=== PATIENT | female | born 1945 | race Caucasian/White ===

== ENCOUNTER 2018-01-19 23:20 | Inpatient (IN) | payer MEDICARE ==
[~2018-01-19] VITALS: Ht 154.9 cm; Wt 97.3 kg
[2018-01-20] MEDS ORDERED: SODIUM CHLORIDE 0.9% 1000ML 1,000 ML IV STA (00:24)
[2018-01-20] MEDS ORDERED: ONDANSETRON HCL INJ 2 MG/ML VIAL IV STA (00:24)
[2018-01-20] MEDS ORDERED: PANTOPRAZOLE 40 MG 10ML VIAL IV STA (00:24)
[2018-01-20] MEDS ORDERED: HYDROMORPHONE 1MG/1ML INJ IV STA (00:24)
[2018-01-20 00:56] LABS: BASOPHILS % 0.3 % (0.0-1.0); EOSINOPHILS # (AUTO) 0.1 (0.0-0.4); EOSINOPHILS % 0.8 % (0.0-6.0); HEMATOCRIT 47.9 % (34.2-44.1); HEMOGLOBIN 15.5 g/dL (12.0-16.0); LYMPHOCYTES # (AUTO) 1.9 (1.0-3.2); LYMPHOCYTES % 11.7 % (18.0-39.1); MEAN CORPUSCULAR HGB CONC 32.4 g/dL (31-35); MEAN CORPUSCULAR VOLUME 86.5 fL (81-99); MONOCYTES # (AUTO) 1.4 (0.2-0.8); MONOCYTES % 8.9 % (4.4-11.3); NEUTROPHILS # (AUTO) 12.4 (2.1-6.9); NEUTROPHILS % 77.9 % (38.7-80.0); PLATELET COUNT 300 x10e3/uL (140-360); RED BLOOD COUNT 5.54 x10e6/uL (3.6-5.1); RED CELL DISTRIBUTION WIDTH 13.1 % (11.7-14.4)
[2018-01-20 01:00] LABS: INR 0.87; PROTHROMBIN TIME 12.7 seconds (11.9-14.5)
[2018-01-20 01:09] LABS: ALANINE AMINOTRANSFERASE 35 IU/L (0-55); ALBUMIN 3.8 g/dL (3.5-5.0); ALKALINE PHOSPHATASE 130 IU/L (40-150); AMYLASE 752 U/L (25-125); ANION GAP 18.9 mmol/L (8-16); BLOOD UREA NITROGEN 8 mg/dL (7-26); BUN/CREATININE RATIO 11 (6-25); CALCIUM 9.8 mg/dL (8.4-10.2); CARBON DIOXIDE 20 mmol/L (22-29); CHLORIDE 104 mmol/L (98-107); CREATINE KINASE 46 IU/L (29-168); CREATININE, SERUM 0.76 mg/dL (0.57-1.11); EST GLOMERULAR FILTRATION RATE > 60 ML/MIN (60-); GLUCOSE 177 mg/dL (74-118); MAGNESIUM 2.1 MG/DL (1.3-2.1); POTASSIUM 3.9 mmol/L (3.5-5.1); SODIUM 139 mmol/L (136-145)
[2018-01-20 01:17] LABS: CLARITY,URINE HAZY (CLEAR); COLOR,URINE YELLOW (YELLOW)
[2018-01-20 01:18] LABS: BILIRUBIN,URINE NEGATIVE (NEGATIVE); KETONES,URINE TRACE (NEGATIVE); LEUKOCYTE ESTERASE ,URINE NEGATIVE (NEGATIVE); NITRITE,URINE NEGATIVE (NEGATIVE); PROTEIN,URINE DIPSTICK 2+ (NEGATIVE); URINE UROBILINOGEN 0.2 mg/dL (0.2 - 1)
[2018-01-20 01:19] LABS: BACTERIA,URINE MODERATE /HPF; EPITHELIAL CELLS,URINE FEW /LPF; MUCUS,URINE FEW (RARE)
[2018-01-20 01:21] LABS: RBC,URINE 0-5 /HPF (0-5)
--- NOTE | 2018-01-20 01:26 | Diagnostic Imaging Report ---
EXAM: CHEST SINGLE (PORTABLE), AP 1 view INDICATION: History of pancreatitis, abdominal pain COMPARISON: None FINDINGS: LINES/TUBES: None LUNGS: No consolidations or edema. PLEURA: No effusions or pneumothorax. HEART AND MEDIASTINUM: Normal size and contour. BONES AND SOFT TISSUES: No acute findings. IMPRESSION: No acute thoracic abnormality. Signed by: Dr. Lesely Cordova M.D. on 01/20/2018 1:23 AM
[2018-01-20] MEDS ORDERED: HYDROMORPHONE 2MG/ML 2 MG/ML ML ONE (01:32)
[2018-01-20] MEDS ORDERED: IOPAMIDOL 370 MG/ML 200 ML INFUS..BTL INJ ONE (01:33)
[2018-01-20] MEDS ORDERED: SODIUM CHLORIDE 0.9% 50ML 50 ML ONE (01:33)
[2018-01-20 01:49] LABS: LIPASE 1897 U/L (8-78)
[2018-01-20 02:11] LABS: CHOL/HDL RATIO 3.7 (3.0-3.6)
--- NOTE | 2018-01-20 02:20 | Diagnostic Imaging Report ---
EXAM: CT ABDOMEN AND PELVIS with IV CONTRAST DATE: 01/20/2018 12:24 AM Time stamp on Exam: 0152 hours INDICATION: History of pancreatitis, abdominal pain COMPARISON: None TECHNIQUE: The abdomen and pelvis were scanned using a multidetector helical scanner. Coronal and sagittal reformations were obtained. Dose modulation, iterative reconstruction, and/or weight based adjustment of the mA/kV was utilized to reduce the radiation dose to as low as reasonably achievable. Routine protocol performed. IV Contrast: 100 cc Isovue-370 Oral Contrast: Water FINDINGS: LOWER THORAX: No consolidations LIVER: No masses BILIARY: Cholecystectomy. No ductal dilation. SPLEEN: No masses PANCREAS: Body and tail of the pancreas are edematous with mild pancreatic stranding. Mild ductal dilation. ADRENALS: No nodules KIDNEYS: Symmetric perfusion. Bilateral mild to moderate hydronephrosis without hydroureter versus multiple parapelvic cysts. Nonspecific bilateral perinephric fat stranding. GI TRACT: No distention, wall thickening or evidence of obstruction. VESSELS: No acute findings PERITONEUM/RETROPERITONEUM: No free air or fluid LYMPH NODES: No lymphadenopathy REPRODUCTIVE ORGANS: Uterus and ovaries not visualized. BLADDER: Unremarkable SOFT TISSUES: Unremarkable BONES: No suspicious bone lesions. IMPRESSION: 1. Appearance of the pancreas would be consistent with acute pancreatitis. No pseudocyst. 2. Appearance of the bilateral kidneys is indeterminate for multiple parapelvic cysts or hydronephrosis secondary to UPJ obstruction. A nonemergent ultrasound would help distinguish. Signed by: Dr. Lesley Cordova M.D. on 01/20/2018 2:17 AM
[2018-01-20] MEDS: SODIUM CHLORIDE 0.9% 1000ML 1,000 ML IV SCH ×3 (03:40→17:03)
[2018-01-20] MEDS: CEFTRIAXONE SOD 1 GM VIAL IV SCH ×2 (03:40→14:54)
[2018-01-20] MEDS ORDERED: ACETAMINOPHEN 325 MG TAB ONE (04:11)
[2018-01-20] MEDS ORDERED: ACETAMINOPHEN 325 MG TAB PO ONE (04:15)
[2018-01-20] MEDS: HYDROMORPHONE 2MG/ML 2 MG/ML ML IV PRN ×2 (07:31→15:29)
[2018-01-20] MEDS: PANTOPRAZOLE 40 MG 10ML VIAL IV SCH (09:21)
--- NOTE | 2018-01-20 11:32 | History and Physical ---
PRIMARY CARE PHYSICIAN: Dr. Chauncey Saini. CHIEF COMPLAINT: Abdominal pain. HISTORY OF PRESENT ILLNESS: A 72-year-old woman with a history of cigarette use and a history of pancreatitis on 2 occasions, now developing epigastric pain with nausea and vomiting. She denies any diarrhea or fever. She is admitted for management of acute pancreatitis. PAST MEDICAL HISTORY: Endometriosis, status post hysterectomy; cigarette use; pancreatitis x2. PAST SURGICAL HISTORY: Cholecystectomy, hysterectomy, thyroid, left knee, cataract x2, endometriosis related procedures. ALLERGIES: PER ELECTRONIC MEDICAL RECORD. FAMILY AND SOCIAL HISTORY: Patient is . She has no children. No alcohol or illicits. She smokes a third of a pack of cigarettes per day. MEDICATIONS: Per electronic medical record. REVIEW OF SYSTEMS: Denies any dizziness, chest pain, shortness of breath, fever, chills, sweats, headache, or vision changes. PHYSICAL EXAMINATION VITAL SIGNS: Reviewed. GENERAL: A tired-appearing woman, resting in bed. HEENT: Anicteric. Pupils are responsive to light. No oral lesions. CARDIOVASCULAR: Normal S1, S2. LUNGS: Moderate breath sounds. ABDOMEN: Soft, nondistended. She has exquisite tenderness in the epigastrium. EXTREMITIES: No edema or calf tenderness. NEUROLOGICAL: Alert and oriented x3, moves all extremities. SKIN: Dry. PSYCHIATRIC: Normal affect. LABS: Reviewed. MEDICATIONS: Reviewed. ASSESSMENT: This is a 72-year-old woman with; 1. Acute pancreatitis. 2. Urinary tract infection. 3. Metabolic acidosis. 4. Dehydration. 5. Obesity. 6. Hyperglycemia. 7. Cigarette smoker. PLAN 1. IV fluids. 2. NPO status. 3. Empiric antibiotics. 4. She had a cholecystectomy in the past. 5. CT scan of the abdomen shows findings consistent with acute pancreatitis, but no pseudocyst. 6. Continue to follow closely, rehydrate patient, and reassess labs in the morning. Job#: [id number] CECI
[2018-01-20 14:28] VITALS: BP 139/96
[2018-01-20] MEDS: ONDANSETRON HCL INJ 2 MG/ML VIAL IV PRN (15:29)
[2018-01-20 17:23] VITALS: BP 139/82
[2018-01-20 17:24] VITALS: BP 139/82
[2018-01-20 17:29] VITALS: BP 139/82
[2018-01-20] MEDS ORDERED: ACETAMINOPHEN 1000 MG/100 ML IV PRN (18:00)
[2018-01-20] MEDS ORDERED: ACETAMINOPHEN 1000 MG/100 ML IV SCH (18:00)
[2018-01-20 20:00] VITALS: BP_SYST 139; BP_SYST 146; BP_DIAS 77; BP_DIAS 82
[2018-01-21] VITALS: BP 119/62
[2018-01-21] MEDS: HYDROMORPHONE 2MG/ML 2 MG/ML ML IV PRN (00:08)
[2018-01-21] MEDS: ONDANSETRON HCL INJ 2 MG/ML VIAL IV PRN (00:08)
[2018-01-21] MEDS: SODIUM CHLORIDE 0.9% 1000ML 1,000 ML IV SCH ×3 (01:40→22:28)
[2018-01-21] MEDS: CEFTRIAXONE SOD 1 GM VIAL IV SCH ×2 (01:42→14:58)
[2018-01-21 04:00] VITALS: BP 117/56
[2018-01-21 05:13] LABS: BASOPHILS # (AUTO) 0.1 (0.0-0.1); BASOPHILS % 0.4 % (0.0-1.0); EOSINOPHILS # (AUTO) 0.2 (0.0-0.4); EOSINOPHILS % 1.2 % (0.0-6.0); HEMOGLOBIN 13.2 g/dL (12.0-16.0); LYMPHOCYTES # (AUTO) 1.5 (1.0-3.2); LYMPHOCYTES % 10.7 % (18.0-39.1); MEAN CORPUSCULAR HEMOGLOBIN 28.4 pg (28-32); MEAN CORPUSCULAR HGB CONC 32.2 g/dL (31-35); MEAN CORPUSCULAR VOLUME 88.2 fL (81-99); MONOCYTES # (AUTO) 1.3 (0.2-0.8); MONOCYTES % 8.9 % (4.4-11.3); NEUTROPHILS # (AUTO) 11.1 (2.1-6.9); NEUTROPHILS % 78.2 % (38.7-80.0); PLATELET COUNT 233 x10e3/uL (140-360); RED BLOOD COUNT 4.65 x10e6/uL (3.6-5.1); RED CELL DISTRIBUTION WIDTH 13.4 % (11.7-14.4)
[2018-01-21 05:40] LABS: ALANINE AMINOTRANSFERASE 26 IU/L (0-55); ALBUMIN 3.1 g/dL (3.5-5.0); ALBUMIN/GLOBULIN RATIO 0.9 (0.8-2.0); ALKALINE PHOSPHATASE 109 IU/L (40-150); AMYLASE 144 U/L (25-125); ANION GAP 16.9 mmol/L (8-16); BLOOD UREA NITROGEN 6 mg/dL (7-26); BUN/CREATININE RATIO 9 (6-25); CALCIUM 9.5 mg/dL (8.4-10.2); CARBON DIOXIDE 23 mmol/L (22-29); CHLORIDE 104 mmol/L (98-107); EST GLOMERULAR FILTRATION RATE > 60 ML/MIN (60-); GLUCOSE 106 mg/dL (74-118); LIPASE 148 U/L (8-78); POTASSIUM 4.9 mmol/L (3.5-5.1); SODIUM 139 mmol/L (136-145)
[2018-01-21] MEDS: PANTOPRAZOLE 40 MG 10ML VIAL IV SCH (08:07)
[2018-01-21 08:15] VITALS: BP 122/67
[2018-01-21 11:59] VITALS: BP 125/59
--- OUTSIDE RECORDS SUMMARY | 2018-01-21 14:10 | XMS REPORT | Clinical Summary ---
Author Author [employer] [employer] [facility] [employer] Address Unknown Phone Unavailable Care Team Providers Care Lamp Shade Maker Name Role Phone Asked, No Pcp PCP Unavailable Allergies Active Allergy Reactions Severity Noted Date Comments Celecoxib Anaphylaxis High 09/26/2017 Sulfa (Sulfonamide Anaphylaxis High 09/26/2017 Antibiotics) Current Medications Prescription Sig. Disp. Refills Start End Date Status Date acetaminophen (TYLENOL) Take 650 mg by mouth Active 325 MG tablet every 6 (six) hours as needed for fever. ALPRAZolam (XANAX) 0.5 MG Take 0.25 mg by mouth Active tablet nightly as needed for anxiety (only taken 2 since April). traMADol (ULTRAM) 50 mg Take 1 tablet (50 mg 60 tablet 0 09/28/19 10/28/19 tablet total) by mouth every 6 18 18 (six) hours as needed for moderate pain for up to 30 days. Active Problems Problem Noted Date Chest pain 09/27/2017 Encounters Date Type Specialty Care Team Description 09/26/2017 Emergency General Internal Medicine Filipe Adan MD Chest pain, unspecified - Michelle Jarred type (Primary Dx); 09/27/2017 MD Phil Acute pancreatitis, unspecified complication status, unspecified pancreatitis type after 01/19/2017 Social History Tobacco Use Types Packs/Day Years Used Date Light Tobacco Smoker Cigarettes Smokeless Tobacco: Never Used Tobacco Cessation: Ready to Quit: No; Counseling Given: Yes Alcohol Use Drinks/Week oz/Week Comments No Sex Assigned at Date Recorded Not on file Last Filed Vital Signs Vital Sign Reading Time Taken Blood Pressure 141/66 09/27/2017 11:23 AM CDT Pulse 72 09/27/2017 11:23 AM CDT Temperature 36.8 C (98.3 F) 09/27/2017 11:23 AM CDT Respiratory Rate 18 09/27/2017 11:23 AM CDT Oxygen Saturation 94% 09/27/2017 11:23 AM CDT Inhaled Oxygen - - Concentration Weight 90.7 kg (200 lb) 09/26/2017 8:30 PM CDT Height 157.5 cm (5' 2") 09/26/2017 8:30 PM CDT Body Mass Index 36.58 09/26/2017 8:30 PM CDT Plan of Treatment Health Maintenance Due Date Last Done Comments BREAST CANCER SCREENING 01/22/1996 COLON CANCER SCREENING 01/22/1996 SHINGRIX VACCINE (#1) 01/22/1996 ZOSTER VACCINE 2006 INFLUENZA VACCINE 11/06/2017 PNEUMOCOCCAL-13 Completed 03/14/2016 PNEUMOCOCCAL Completed 04/16/2017 POLYSACCHARIDE VACCINE AGE 65 AND OVER Procedures Procedure Name Priority Date/Time Associated Diagnosis Comments TROPONIN Timed 09/27/2017 Results for this 12:18 PM CDT procedure are in the results section. TROPONIN Timed 09/27/2017 Results for this 8:44 AM CDT procedure are in the results section. ECG 12-LEAD Routine 09/27/2017 Results for this 4:41 AM CDT procedure are in the results section. TROPONIN Timed 09/27/2017 Results for this 4:24 AM CDT procedure are in the results section. CT ABDOMEN PELVIS WO STAT 09/27/2017 Results for this CONTRAST 1:07 AM CDT procedure are in the results section. TROPONIN Timed 09/27/2017 Results for this 12:38 AM CDT procedure are in the results section. LIPASE LEVEL STAT 09/26/2017 Results for this 9:38 PM CDT procedure are in the results section. HEPATIC FUNCTION PANEL STAT 09/26/2017 Results for this 9:38 PM CDT procedure are in the results section. B NATRIURETIC PEPTIDE STAT 09/26/2017 Results for this 9:38 PM CDT procedure are in the results section. ZZESTIMATED GFR STAT 09/26/2017 Results for this 9:38 PM CDT procedure are in the results section. TROPONIN STAT 09/26/2017 Results for this 9:38 PM CDT procedure are in the results section. HC COMPLETE BLD COUNT STAT 09/26/2017 Results for this W/AUTO DIFF 9:38 PM CDT procedure are in the results section. BASIC METABOLIC PANEL STAT 09/26/2017 Results for this 9:38 PM CDT procedure are in the results section. XR CHEST 1 VW PORTABLE STAT 09/26/2017 Results for this 9:34 PM CDT procedure are in the results section. ECG 12-LEAD STAT 09/26/2017 Results for this 8:23 PM CDT procedure are in the results section. ECG ED PRELIMINARY Routine 09/26/2017 Results for this INTERPRETATION 8:20 PM CDT procedure are in the results section. after 01/19/2017 Results * Troponin (09/27/2017 12:18 PM) Only the most recent of 5 results within the time period is included. Troponin <0.30 ng/mL [facility] DEPARTMENT OF Comment: PATHOLOGY AND 0.11 - 1.49 GENOMIC MEDICINE ng/mlMay indicate increased risk of acute coronary syndrome. >=1.5 ng/ml Consistent with acute myocardial infarction. The diagnostic value of a single normal or non-diagnostic result is questionable.Serial samples at 2-6 hour intervals are required to rule out acute myocardial injury. Specimen Plasma specimen Performing Organization Address City/State/Zipcode Phone Number [address] [address] PATHOLOGY AND GENOMIC MEDICINE * ECG 12 lead (09/27/2017 4:41 AM) Only the most recent of 2 results within the time period is included. Ventricular rate 67 [facility] Atrial rate 67 [facility] MT interval 144 [facility] QRSD interval 82 [facility] QT interval 434 [facility] QTC interval 458 [facility] P axis 1 10 [facility] QRS axis 1 -33 [facility] T wave axis 98 [facility] EKG impression Normal sinus rhythm-Left axis [facility] deviation-T wave abnormality, consider anterolateral ischemia-Abnormal ECG-In automated comparison with ECG of 26-SEP-2017 20:23,-T wave inversion more evident in Anterior leads- Performing Organization Address City/State/Zipcode Phone Number [facility] M[facility] [address] [place] [address] * CT Abdomen Pelvis Wo Contrast (09/27/2017 1:07 AM) Narrative Performed At Examination:CT ABDOMEN PELVIS WO CONTRAST [facility] Clinical History: abdominal pain Comparison: None. Findings: CT scans are performed using radiation dose reduction techniques.Technical factors are evaluated and adjusted to ensure appropriate moderation of exposure.Automated dose management technology is applied to adjust radiation exposure while achieving a diagnostic quality image. CT scan of the abdomen and pelvis was performed without intravenous contrast. The liver is diffusely low in density. There is peripancreatic fat stranding noted around the body and head of the pancreas. The spleen and adrenal glands are unremarkable. The patient is status post cholecystectomy. Bilateral prominent renal pelvis or cystic structures are noted no urinary calculus is seen. No hydroureter is seen. The appendix is not visualized. No bowel thickening or fat stranding is seen. No bowel dilatation is seen. No free air or fluid is seen. Urinary bladder is unremarkable. The visualized lung bases are clear. IMPRESSION: 1. Mild peripancreatic fat stranding around the body and head of the pancreas suspicious for acute pancreatitis. 2. Fatty liver. 3. Prominent cystic densities at the bilateral renal pelvis may be related to parapelvic cysts versus pelviectasis. Clinical correlation is recommended. [id number] Procedure Note Interface, Radiology Results Incoming - 09/27/2017 1:25 AM CDT Examination: CT ABDOMEN PELVIS WO CONTRAST Clinical History: abdominal pain Comparison: None. Findings: CT scans are performed using radiation dose reduction techniques. Technical factors are evaluated and adjusted to ensure appropriate moderation of exposure. Automated dose management technology is applied to adjust radiation exposure while achieving a diagnostic quality image. CT scan of the abdomen and pelvis was performed without intravenous contrast. The liver is diffusely low in density. There is peripancreatic fat stranding noted around the body and head of the pancreas. The spleen and adrenal glands are unremarkable. The patient is status post cholecystectomy. Bilateral prominent renal pelvis or cystic structures are noted no urinary calculus is seen. No hydroureter is seen. The appendix is not visualized. No bowel thickening or fat stranding is seen. No bowel dilatation is seen. No free air or fluid is seen. Urinary bladder is unremarkable. The visualized lung bases are clear. IMPRESSION: 1. Mild peripancreatic fat stranding around the body and head of the pancreas suspicious for acute pancreatitis. 2. Fatty liver. 3. Prominent cystic densities at the bilateral renal pelvis may be related to parapelvic cysts versus pelviectasis. Clinical correlation is recommended. [id number] Performing Organization Address City/State/Zipcode Phone Number [facility] [address] [place] [address] * Estimated GFR (09/26/2017 9:38 PM) GFR Non Af Amer >90 mL/min/1.73 m2 [facility] DEPARTMENT OF PATHOLOGY AND GENOMIC MEDICINE GFR Af Amer >90 mL/min/1.73 m2 [facility] DEPARTMENT OF Comment: PATHOLOGY AND Chronic kidney disease: <60 GENOMIC MEDICINE mL/min/1.73m2 Kidney failure: <15 mL/min/1.73m2 The estimated GFR is calculated from the IDMS-traceable Modification of Diet in Renal Disease Equation. The accuracy of the calculation is poor when the creatinine is normal. Calculated values >90 mL/min/1.73m2 are not reported. This equation has not been validated in children (<18 years), women, the elderly (>70 years), or ethnic groups other than Caucasians and Americans. Specimen Plasma specimen Performing Organization Address City/State/Zipcode Phone Number [place] [id number] [place] [address] PATHOLOGY AND GENOMIC MEDICINE * CBC with platelet and differential (09/26/2017 9:38 PM) WBC 14.6 (H) 4.2 - 11.0 k/uL [facility] DEPARTMENT OF PATHOLOGY AND GENOMIC MEDICINE RBC 5.88 (H) 4.04 - 5.86 m/uL [facility] PATHOLOGY AND GENOMIC MEDICINE HGB 16.1 (H) 11.5 - 15.3 g/dL [facility] DEPARTMENT PATHOLOGY AND GENOMIC MEDICINE HCT 51.6 (H) 34.0 - 45.0 % [facility] DEPARTMENT PATHOLOGY AND GENOMIC MEDICINE MCV 87.8 80.0 - 98.0 fL [facility] DEPARTMENT OF PATHOLOGY AND GENOMIC MEDICINE MCH 27.4 27.0 - 34.0 pg [facility] DEPARTMENT OF PATHOLOGY AND GENOMIC MEDICINE MCHC 31.2 (L) 31.5 - 36.5 g/dL [facility] DEPARTMENT PATHOLOGY AND GENOMIC MEDICINE RDW - SD 42.8 37.0 - 51.0 fL [facility] DEPARTMENT PATHOLOGY AND GENOMIC MEDICINE MPV 10.4 7.4 - 10.4 fL [facility] DEPARTMENT PATHOLOGY AND GENOMIC MEDICINE Platelet count 311 150 - 400 k/uL [facility] DEPARTMENT PATHOLOGY AND GENOMIC MEDICINE Nucleated RBC 0.00 /100 WBC [facility] DEPARTMENT PATHOLOGY AND GENOMIC MEDICINE Neutrophils 71.7 (H) 36.0 - 66.0 % [facility] DEPARTMENT PATHOLOGY AND GENOMIC MEDICINE Lymphocytes 17.8 (L) 24.0 - 44.0 % [facility] DEPARTMENT OF PATHOLOGY AND GENOMIC MEDICINE Monocytes 8.9 (H) 0.0 - 6.0 % [facility] DEPARTMENT OF PATHOLOGY AND GENOMIC MEDICINE Eosinophils 0.4 0.0 - 6.0 % [facility] DEPARTMENT OF PATHOLOGY AND GENOMIC MEDICINE Basophils 0.4 0.0 - 1.2 % [facility] DEPARTMENT OF PATHOLOGY AND GENOMIC MEDICINE Immature granulocytes 0.8 0.0 - 1.0 % [facility] DEPARTMENT OF PATHOLOGY AND GENOMIC MEDICINE Specimen Blood Performing Organization Address [facility] [place] [address] PATHOLOGY AND GENOMIC MEDICINE * B natriuretic peptide (09/26/2017 9:38 PM) BNP 26 0 - 100 pg/mL [facility] DEPARTMENT OF PATHOLOGY AND GENOMIC MEDICINE Specimen Blood Performing Organization Address [facility] [place] [address] PATHOLOGY AND GENOMIC MEDICINE * Lipase level (09/26/2017 9:38 PM) Lipase >576 (H) 13 - 60 U/L [facility] DEPARTMENT OF PATHOLOGY AND GENOMIC MEDICINE Specimen Plasma specimen Performing Organization Address [facility] [place] [address] PATHOLOGY AND GENOMIC MEDICINE * Hepatic function panel (09/26/2017 9:38 PM) Albumin 4.1 3.5 - 5.0 g/dL [facility] DEPARTMENT OF PATHOLOGY AND GENOMIC MEDICINE Total bilirubin <0.3 0.2 - 1.2 mg/dL [facility] DEPARTMENT OF PATHOLOGY AND GENOMIC MEDICINE Bilirubin direct <0.2 0.0 - 0.4 mg/dL [facility] DEPARTMENT OF PATHOLOGY AND GENOMIC MEDICINE Alkaline phosphatase 118 (H) 0 - 104 U/L [facility] DEPARTMENT OF PATHOLOGY AND GENOMIC MEDICINE Protein 8.0 6.3 - 8.3 g/dL [facility] DEPARTMENT OF PATHOLOGY AND GENOMIC MEDICINE ALT 34 5 - 50 U/L [facility] DEPARTMENT OF PATHOLOGY AND GENOMIC MEDICINE AST 30 10 - 35 U/L [facility] DEPARTMENT OF PATHOLOGY AND GENOMIC MEDICINE Specimen Plasma specimen Performing Organization Address [facility] [place] [address] PATHOLOGY AND GENOMIC MEDICINE * Basic metabolic panel (09/26/2017 9:38 PM) Sodium 141 135 - 150 mEq/L [facility] DEPARTMENT OF PATHOLOGY AND GENOMIC MEDICINE Potassium 4.1 3.5 - 5.0 mEq/L [facility] DEPARTMENT OF PATHOLOGY AND GENOMIC MEDICINE Chloride 102 98 - 112 mEq/L [facility] DEPARTMENT OF PATHOLOGY AND GENOMIC MEDICINE CO2 28 24 - 31 mmol/L [facility] DEPARTMENT OF PATHOLOGY AND GENOMIC MEDICINE Anion gap 11@ANIO 7 - 15 mEq/L [facility] DEPARTMENT OF PATHOLOGY AND GENOMIC MEDICINE BUN 12 7 - 18 mg/dL [facility] DEPARTMENT OF PATHOLOGY AND GENOMIC MEDICINE Creatinine 0.60 0.50 - 0.90 mg/dL [facility] DEPARTMENT OF PATHOLOGY AND GENOMIC MEDICINE Glucose 123 (H) 65 - 100 mg/dL [facility] DEPARTMENT OF PATHOLOGY AND GENOMIC MEDICINE Calcium 9.8 8.8 - 10.2 mg/dL [facility] DEPARTMENT OF PATHOLOGY AND GENOMIC MEDICINE Specimen Plasma specimen Performing Organization Address City/State/Zipcode Phone Number [facility] DEPARTMENT [facility] [place] [address] PATHOLOGY AND GENOMIC MEDICINE * XR Chest 1 Vw Portable (09/26/2017 9:34 PM) Narrative Performed At EXAMINATION: Portable chest x-ray [facility] CLINICAL HISTORY:Chest Pain COMPARISON: Most recent available chest x-ray. The heart is normal in size. Mediastinum is within normal limits. There are degenerative changes in the dorsal spine. IMPRESSION: 1.Lungs are clear. Pleural surfaces are smooth. [id number] Procedure Note Interface, Radiology Results Incoming - 09/26/2017 9:44 PM CDT EXAMINATION: Portable chest x-ray CLINICAL HISTORY: Chest Pain COMPARISON: Most recent available chest x-ray. The heart is normal in size. Mediastinum is within normal limits. There are degenerative changes in the dorsal spine. IMPRESSION: 1. Lungs are clear. Pleural surfaces are smooth. [id number] Performing Organization Address City/State/Zipcode Phone Number [facility] [address] [place] [address] * ECG ED Preliminary Interpretation - NOT AN ORDER (09/26/2017 8:20 PM) Narrative Performed At Filipe Adan MD 09/27/20174:33 AM ECG ED Preliminary Interpretation - Not an Order Performed by: FILIPE ADAN Authorized by: FILIPE ADAN ECG reviewed by ED Physician in the absence of a scallop binder: yes Rate: ECG rate:86 ECG rate assessment: normal Rhythm: Rhythm: sinus rhythm Ectopy: Ectopy: none ST segments: ST segments:Normal T waves: T waves: inverted Inverted:V4, V5 and V6 after 01/19/2017 Insurance Payer Benefit Subscriber ID Type Phone Address Plan / Group [employer] C[employer] xxxxxxxxxxx [facility]
--- OUTSIDE RECORDS SUMMARY | 2018-01-21 14:10 | XMS REPORT | Clinical Summary ---
Author Author [facility] Address Unknown Phone Unavailable Care Team Providers Care Hotel Desk Clerk Name Role Phone Asked, No Pcp PCP [...] Michelle Jarred type (Primary Dx); 09/27/2017 MD hPil Acute pancreatitis, unspecified complication status, unspecified pancreatitis type after 01/18/2017 Social History Tobacco Use Types Packs/Day Years [...] procedure are in the results section. after 01/18/2017 Results * Troponin (09/27/2017 12:18 PM) Only the most recent of 5 results within the time period is included. Troponin <0.30 ng/mL [facility] [place] Comment: PATHOLOGY AND 0.11 - 1.49 GENOMIC MEDICINE ng/mlMay indicate increased risk of acute coronary syndrome. >=1.5 ng/ml Consistent with acute myocardial infarction. The diagnostic value of a single normal or non-diagnostic result is questionable.Serial samples at 2-6 hour intervals are required to rule out acute myocardial injury. Specimen Plasma specimen Performing Organization Address City/State/Zipcode Phone Number [address] [address] PATHOLOGY AND GENOMIC MEDICINE * ECG 12 lead (09/27/2017 4:41 AM) Only the most recent of 2 results within the time period is included. Ventricular rate 67 [facility] Atrial rate 67 [facility] CA interval 144 [facility] QRSD interval 82 [...] leads- Performing Organization Address City/State/Zipcode Phone Number [facility] [address] [place] [address] * CT Abdomen Pelvis Wo Contrast (09/27/2017 [...] cysts versus pelviectasis. Clinical correlation is recommended. [facility]-[id number] Procedure Note Interface, Radiology Results Incoming - [...] cysts versus pelviectasis. Clinical correlation is recommended. [facility]-[id number] Performing Organization Address City/State/Zipcode Phone Number [facility] [address] [place] [address] * Estimated GFR (09/26/2017 9:38 PM) GFR Non Af Amer >90 mL/min/1.73 m2 [facility]OMIC MEDICINE GFR Af Amer >90 mL/min/1.73 m2 [facility] [place] Comment: PATHOLOGY AND Chronic kidney [...] specimen Performing Organization Address City/State/Zipcode Phone Number [place] [phone] [place] [address] PATHOLOGY AND GENOMIC MEDICINE * CBC with platelet and differential (09/26/2017 9:38 PM) WBC 14.6 (H) 4.2 - 11.0 k/uL [facility]Y AND GENOMIC MEDICINE RBC 5.88 (H) 4.04 - 5.86 m/uL [facility] PATHOLOGY AND GENOMIC MEDICINE HGB 16.1 (H) 11.5 - 15.3 g/dL [facility] PATH[facility]Y AND GENOMIC MEDICINE HCT 51.6 (H) 34.0 - 45.0 % [facility] AND GENOMIC MEDICINE MCV 87.8 80.0 - 98.0 fL [facility]Y AND GENOMIC MEDICINE MCH 27.4 27.0 - 34.0 pg [facility] AND GENOMIC MEDICINE MCHC 31.2 (L) 31.5 - 36.5 g/dL [facility]Y AND GENOMIC MEDICINE RDW - SD 42.8 37.0 - 51.0 fL [facility]Y AND GENOMIC MEDICINE MPV 10.4 7.4 - 10.4 fL [facility] GENOMIC MEDICINE Platelet count 311 150 - 400 k/uL [facility] AND GENOMIC MEDICINE Nucleated RBC 0.00 /100 WBC [facility]Y AND GENOMIC MEDICINE Neutrophils 71.7 (H) 36.0 - 66.0 % [facility]Y AND GENOMIC MEDICINE Lymphocytes 17.8 (L) 24.0 - 44.0 % [facility] DEPARTMENT OF PATHOLOGY AND GENOMIC MEDICINE Monocytes 8.9 (H) 0.0 - 6.0 % [facility] AND GENOMIC MEDICINE Eosinophils 0.4 0.0 - 6.0 % [facility]Y AND GENOMIC MEDICINE Basophils 0.4 0.0 - 1.2 % [facility]Y AND GENOMIC MEDICINE Immature granulocytes 0.8 0.0 - 1.0 % [facility]OLOGY AND GENOMIC MEDICINE Specimen Blood Performing Organization Address [facility] [place] [address] PATHOLOGY AND GENOMIC MEDICINE * B natriuretic peptide (09/26/2017 9:38 PM) BNP 26 0 - 100 pg/mL [facility]Y AND GENOMIC MEDICINE Specimen Blood Performing Organization Address [facility] [place] [address] PATHOLOGY AND GENOMIC MEDICINE * Lipase level (09/26/2017 9:38 PM) Lipase >576 (H) 13 - 60 U/L [facility]Y AND GENOMIC MEDICINE Specimen Plasma specimen Performing Organization Address [facility] [place] [address] PATHOLOGY AND GENOMIC MEDICINE * Hepatic function panel (09/26/2017 9:38 PM) Albumin 4.1 3.5 - 5.0 g/dL [facility] AND GENOMIC MEDICINE Total bilirubin <0.3 0.2 - 1.2 mg/dL [facility] AND GENOMIC MEDICINE Bilirubin direct <0.2 0.0 - 0.4 mg/dL [facility]OLOGY AND GENOMIC MEDICINE Alkaline phosphatase 118 (H) 0 - 104 U/L [facility]Y AND GENOMIC MEDICINE Protein 8.0 6.3 - 8.3 g/dL [facility]OLOGY AND GENOMIC MEDICINE ALT 34 5 - 50 U/L [facility]OLOGY AND GENOMIC MEDICINE AST 30 10 - 35 U/L [facility]OLOGY AND GENOMIC MEDICINE Specimen Plasma specimen Performing Organization Address [facility] [place] [address] PATHOLOGY AND GENOMIC MEDICINE * Basic metabolic panel (09/26/2017 9:38 PM) Sodium 141 135 - 150 mEq/L [facility] AND GENOMIC MEDICINE Potassium 4.1 3.5 - 5.0 mEq/L [facility]Y AND GENOMIC MEDICINE Chloride 102 98 - 112 mEq/L [facility]OLOGY AND GENOMIC MEDICINE CO2 28 24 - 31 mmol/L [facility]Y AND GENOMIC MEDICINE Anion gap 11@ANIO 7 - 15 mEq/L [facility]Y AND GENOMIC MEDICINE BUN 12 7 - 18 mg/dL [facility]Y AND GENOMIC MEDICINE Creatinine 0.60 0.50 - 0.90 mg/dL [facility]Y AND GENOMIC MEDICINE Glucose 123 (H) 65 - 100 mg/dL [facility]Y AND GENOMIC MEDICINE Calcium 9.8 8.8 - 10.2 mg/dL [facility]Y AND GENOMIC MEDICINE Specimen Plasma specimen Performing Organization Address City/State/Zipcode Phone Number [facility] [place] [address] PATHOLOGY AND GENOMIC MEDICINE * XR Chest 1 Vw Portable (09/26/2017 9:34 PM) Narrative Performed At EXAMINATION: Portable chest x-ray [facility] CLINICAL HISTORY:Chest Pain COMPARISON: Most recent available chest x-ray. The heart is normal in size. Mediastinum is within normal limits. There are degenerative changes in the dorsal spine. IMPRESSION: 1.Lungs are clear. Pleural surfaces are smooth. [facility]-[id number] Procedure Note Interface, Radiology Results Incoming - 09/26/2017 9:44 PM CDT EXAMINATION: Portable chest x-ray CLINICAL HISTORY: Chest Pain COMPARISON: Most recent available chest x-ray. The heart is normal in size. Mediastinum is within normal limits. There are degenerative changes in the dorsal spine. IMPRESSION: 1. Lungs are clear. Pleural surfaces are smooth. [facility]-[id number] Performing Organization Address City/State/Zipcode Phone Number [facility] [address] [place] [address] * ECG ED Preliminary Interpretation - NOT AN ORDER (09/26/2017 8:20 PM) Narrative Performed At Filipe Adan MD 09/27/20174:33 AM ECG ED Preliminary Interpretation - Not an Order Performed by: FILIPE ADAN Authorized by: FILIPE ADAN ECG reviewed by ED Physician in the absence of a recycling or rubbish collector: yes Rate: ECG rate:86 ECG rate assessment: normal Rhythm: Rhythm: sinus rhythm Ectopy: Ectopy: none ST segments: ST segments:Normal T waves: T waves: inverted Inverted:V4, V5 and V6 after 01/18/2017 Insurance Payer Benefit Subscriber ID Type Phone Address Plan / Group [employer] C[employer] xxxxxxxxxxx [facility]
--- OUTSIDE RECORDS SUMMARY | 2018-01-21 14:11 | XMS REPORT ---
[facility] Address Unknown Phone Unavailable Care Team Providers Care National Account Director Name Role Phone Joseph CARABALLO Unavailable Unavailable Problems This patient has no known problems. Allergies, Adverse Reactions, Alerts This patient has no known allergies or adverse reactions. Medications This patient has no known medications. Results Test Description Test Time Test Comments Text Results Atomic Results Result Comments CT ABDOMEN/PELVIS W 2018-01-20 02:03:00 [place] [address] Patient Name: MARCELINO WHITE MR #: [id number] : 1945 Age/Sex: 72/F Req #: [id number] Adm Physician: Ordered by: FREDRICK CARABALLO MD Report #: [id number] Location: ER Room/Bed: Procedure: [id number] CT/CT ABDOMEN/PELVIS W Exam Date: 01/20/18 Exam Time: 0149 REPORT STATUS: Signed EXAM: CT ABDOMEN AND PELVIS with IV CONTRAST DATE: 01/20/2018 12:24 AM Time stamp on Exam: 0152 hours INDICATION: History of pancreatitis, abdominal pain COMPARISON: None TECHNIQUE: The abdomen and pelvis were scanned using a mu ltidetector helical scanner. Coronal and sagittal reformations were obtained. Dose modulation, iterative reconstruction, and/or weight based adjustment of the mA/kV was utilized to reduce the radiation dose to as low as reasonably achievable. Routine protocol performed. IV Contrast: 100 cc Isovue-370 Oral Contrast: Water FINDINGS: LOWER THORAX: No consolidations LIVER: No masses BILIARY: Cholecystectomy. No ductal dilation. SPLEEN: No masses PANCREAS: Body and tail of the pancreas are edematous with mild pancreatic stranding. Mild ductal dilation. ADRENALS: No nodules KIDNEYS: Symmetric perfusion. Bilateral mild to moderate hydronephrosis without hydroureter versus multiple parapelvic cysts. Nonspecific bilateral perinephric fat stranding. GI TRACT: No distention, wall thickening or evidence of obstruction. VESSELS: No acute findings PERITONEUM/RETROPERITONEUM: No free air or fluid LYMPH NODES: No lymphadenopathy REPRODUCTIVE ORGANS: Uterus and ovaries not visualized. BLADDER: Unremarkable SOFT TISSUES: Unremarkable BONES: No suspicious bone lesions. IMPRESSION: 1. Appearance of the pancreas would be consistent with acute pancreatitis. No pseudocyst. 2. Appearance of the bilateral kidneys is indeterminate for multiple parapelvic cysts or hydronephrosis secondary to UPJ obstruction. A nonemergent ultrasound would help distinguish. Signed by: Dr. Juancarlos Fontanez M.D. on 01/20/2018 2:17 AM Dictated By: JUANCARLOS FONTANEZ MD 6 Transcribed By: KELLY on 01/20/18216 COPY TO: FREDRICK CARABALLO MD CHEST SINGLE (PORTABLE) 2018-01-20 01:22:00 [place] [address] Patient Name: MARCELINO WHITE MR #: [id number] : 1945 Age/Sex: 72/F Req #: [id number] Adm Physician: Ordered by: FREDRICK CARABALLO MD Report #: [id number] Location: ER Room/Bed: Procedure: [id number] DX/CHEST SINGLE (PORTABLE) Exam Date: 01/20/18 Exam Time: 0050 REPORT STATUS: Signed EXAM: CHEST SINGLE (PORTABLE), AP 1 view INDICATION: History of pancreatitis, abdominal pain COMPARISON: None FINDINGS: LINES/TUBES: None LUNGS: No consolidations or edema. PLEURA: No effusions or pneumothorax. HEART AND MEDIASTINUM: Normal size and contour. BONES AND SOFT TISSUES: No acute findings. IMPRESSION: No acute thoracic abnormality. Signed by: Dr. Juancarlos Fontanez M.D. on 01/20/2018 1:23 AM Dictated By: JUANCARLOS FONTANEZ MD 2 Transcribed By: KELLY on 01/20/18122 COPY TO: RFEDRICK CARABALLO MD
[2018-01-21 15:52] VITALS: BP 107/69
[2018-01-21] MEDS ORDERED: KETOROLAC TROMETHAMINE 30 MG/ML VIAL IV ONE (16:30)
[2018-01-21] MEDS ORDERED: ACETAMIN/BUTALBITAL/CAFFEINE TAB PO PRN (19:00)
[2018-01-21 20:00] VITALS: BP 117/63
[2018-01-22] VITALS (8 sets, daily range): BP systolic 94–131; BP diastolic 46–72
[2018-01-22] MEDS: CEFTRIAXONE SOD 1 GM VIAL IV SCH ×2 (01:38→14:30)
[2018-01-22 07:13] LABS: BASOPHILS # (AUTO) 0.1 (0.0-0.1); BASOPHILS % 0.7 % (0.0-1.0); EOSINOPHILS # (AUTO) 0.5 (0.0-0.4); EOSINOPHILS % 3.9 % (0.0-6.0); HEMATOCRIT 39.7 % (34.2-44.1); HEMOGLOBIN 12.9 g/dL (12.0-16.0); LYMPHOCYTES # (AUTO) 2.9 (1.0-3.2); LYMPHOCYTES % 24.2 % (18.0-39.1); MEAN CORPUSCULAR HEMOGLOBIN 28.1 pg (28-32); MEAN CORPUSCULAR HGB CONC 32.5 g/dL (31-35); MEAN CORPUSCULAR VOLUME 86.5 fL (81-99); MONOCYTES # (AUTO) 1.3 (0.2-0.8); MONOCYTES % 11.1 % (4.4-11.3); NEUTROPHILS # (AUTO) 7.1 (2.1-6.9); NEUTROPHILS % 59.6 % (38.7-80.0); PLATELET COUNT 271 x10e3/uL (140-360); RED BLOOD COUNT 4.59 x10e6/uL (3.6-5.1); RED CELL DISTRIBUTION WIDTH 13.4 % (11.7-14.4)
[2018-01-22 07:37] LABS: ANION GAP 13.5 mmol/L (8-16); BLOOD UREA NITROGEN 8 mg/dL (7-26); BUN/CREATININE RATIO 12 (6-25); CALCIUM 9.1 mg/dL (8.4-10.2); CARBON DIOXIDE 21 mmol/L (22-29); CHLORIDE 109 mmol/L (98-107); CREATININE, SERUM 0.67 mg/dL (0.57-1.11); EST GLOMERULAR FILTRATION RATE > 60 ML/MIN (60-); GLUCOSE 97 mg/dL (74-118); LIPASE 137 U/L (8-78); POTASSIUM 3.5 mmol/L (3.5-5.1); SODIUM 140 mmol/L (136-145)
[2018-01-22] MEDS: SODIUM CHLORIDE 0.9% 1000ML 1,000 ML IV SCH ×2 (09:30→17:39)
[2018-01-22] MEDS: PANTOPRAZOLE 40 MG 10ML VIAL IV SCH (09:30)
[2018-01-22] MEDS ORDERED: SODIUM CHLORIDE 0.9% 50ML 50 ML ONE (10:50)
[2018-01-22] MEDS: ONDANSETRON HCL INJ 2 MG/ML VIAL IV PRN (14:45)
[2018-01-22] MEDS: HYDROMORPHONE 2MG/ML 2 MG/ML ML IV PRN (14:45)
[2018-01-23] VITALS (8 sets, daily range): BP systolic 119–166; BP diastolic 68–90
[2018-01-23] MEDS ORDERED: SODIUM CHLORIDE 0.9% 50ML 50 ML ONE ×2 (02:21→12:03)
[2018-01-23] MEDS: CEFTRIAXONE SOD 1 GM VIAL IV SCH ×2 (02:30→14:04)
[2018-01-23] MEDS: SODIUM CHLORIDE 0.9% 1000ML 1,000 ML IV SCH ×3 (02:53→23:45)
[2018-01-23 07:39] LABS: BASOPHILS # (AUTO) 0.1 (0.0-0.1); EOSINOPHILS # (AUTO) 0.4 (0.0-0.4); EOSINOPHILS % 5.1 % (0.0-6.0); HEMATOCRIT 37.9 % (34.2-44.1); HEMOGLOBIN 11.9 g/dL (12.0-16.0); LYMPHOCYTES # (AUTO) 2.2 (1.0-3.2); LYMPHOCYTES % 27.4 % (18.0-39.1); MEAN CORPUSCULAR HEMOGLOBIN 27.9 pg (28-32); MEAN CORPUSCULAR HGB CONC 31.4 g/dL (31-35); MEAN CORPUSCULAR VOLUME 88.8 fL (81-99); MONOCYTES # (AUTO) 0.8 (0.2-0.8); MONOCYTES % 10.5 % (4.4-11.3); NEUTROPHILS # (AUTO) 4.4 (2.1-6.9); NEUTROPHILS % 55.5 % (38.7-80.0); PLATELET COUNT 231 x10e3/uL (140-360); RED BLOOD COUNT 4.27 x10e6/uL (3.6-5.1); RED CELL DISTRIBUTION WIDTH 13.4 % (11.7-14.4)
[2018-01-23 08:01] LABS: ANION GAP 12.5 mmol/L (8-16); BLOOD UREA NITROGEN 8 mg/dL (7-26); BUN/CREATININE RATIO 12 (6-25); CARBON DIOXIDE 23 mmol/L (22-29); CHLORIDE 107 mmol/L (98-107); CREATININE, SERUM 0.68 mg/dL (0.57-1.11); EST GLOMERULAR FILTRATION RATE > 60 ML/MIN (60-); GLUCOSE 114 mg/dL (74-118); MAGNESIUM 1.6 MG/DL (1.3-2.1); POTASSIUM 3.5 mmol/L (3.5-5.1); SODIUM 139 mmol/L (136-145)
[2018-01-23] MEDS: PANTOPRAZOLE 40 MG 10ML VIAL IV SCH (08:15)
[2018-01-23 08:16] LABS: AMYLASE 66 U/L (25-125); LIPASE 104 U/L (8-78)
--- NOTE | 2018-01-23 14:45 | Progress Note ---
DATE: January 23, 2018 INTERNAL MEDICINE PROGRESS NOTE SUBJECTIVE: The patient was admitted for underlying pancreatitis and has a urinary tract infection. She is currently on a full-liquid diet. I reviewed the case with the nursing staff. The patient is currently doing well. She denies any pain at this time. OBJECTIVE VITAL SIGNS: Temperature 96.3, pulse 62, respiratory rate 18, blood pressure 120/76, pulse oximetry 96% on room air. GENERAL: In no acute distress, alert and oriented x3, cooperative on examination. HEENT: Head is normocephalic, atraumatic. Eyes: Pupils equal, round and reactive to light bilaterally. Extraocular movements intact bilaterally. Throat with no evidence of erythema or exudates in the posterior pharynx. Has poor dentition. NECK: Supple with good range of motion. PULMONARY: Clear to auscultation bilaterally. No wheezing and no rales. No rhonchi. No crackles appreciated. CARDIOVASCULAR: Positive S1 and S2, no murmurs, rubs or gallops appreciated. ABDOMEN: Soft, nondistended, nontender on palpation. Bowel sounds were present. MUSCULOSKELETAL: Strength 5/5 throughout, no evidence of musculoskeletal deficit on exam. No weakness appreciated. NEUROLOGIC: Cranial nerves II-XII grossly intact. No evidence of neurological deficit on examination. SKIN: Intact. Warm to touch. Good capillary refill. EXTREMITIES: No edema. Good range of motion throughout. PSYCHIATRIC: Normal affect and mood. LABORATORY DATA: Show white count 7.9, hemoglobin 11.9, hematocrit 38, platelets 231,000. Coagulation: PT 12.7, INR 0.87, PTT 29. Chemistry: Sodium 139, potassium 3.5, chloride 107, bicarb 23, anion gap was 12.5. BUN 8, creatinine 0.68. Glucose 114. Calcium 9. Magnesium 1.6. Lipase is 104. CA 19, ____ pending. Parathyroid hormone pending. Urinalysis consistent with UTI. KENA is pending. Microbiology: Blood cultures were no growth. Urine cultures also showed contaminant. IMAGING: CT of the abdomen and pelvis showed appearance of pancreas would be consistent with acute pancreatitis. IMPRESSION 1. Acute pancreatitis. 2. Urinary tract infection. 3. Dehydration. 4. Morbid obesity. 5. Hyperglycemia. 6. Chronic smoker. PLAN: At this time, she is on a full-liquid diet which we will continue. Try to advance it to a regular diet. Continue with IV fluids, pain control. She has improved tremendously while here in the hospital. Will continue with IV antibiotics for now. She will be discharged on oral antibiotics. We are going to get a.m. labs. GI has been following. There are several serologies pending, which she can also follow up as an outpatient. Job#: [id number] TRELL
[2018-01-24] VITALS: BP 128/74
[2018-01-24] MEDS ORDERED: SODIUM CHLORIDE 0.9% 50ML 50 ML ONE (01:54)
[2018-01-24] MEDS: CEFTRIAXONE SOD 1 GM VIAL IV SCH ×2 (02:03→15:37)
[2018-01-24 04:00] VITALS: BP_SYST 121; BP_SYST 126; BP_DIAS 60; BP_DIAS 88
[2018-01-24] MEDS: DICYCLOMINE HCL 20 MG TAB PO SCH ×2 (05:31→15:37)
[2018-01-24 07:11] LABS: BASOPHILS # (AUTO) 0.1 (0.0-0.1); EOSINOPHILS # (AUTO) 0.5 (0.0-0.4); EOSINOPHILS % 5.7 % (0.0-6.0); HEMATOCRIT 37.8 % (34.2-44.1); LYMPHOCYTES % 38.2 % (18.0-39.1); MEAN CORPUSCULAR HEMOGLOBIN 28.2 pg (28-32); MEAN CORPUSCULAR HGB CONC 31.7 g/dL (31-35); MEAN CORPUSCULAR VOLUME 88.9 fL (81-99); MONOCYTES # (AUTO) 0.8 (0.2-0.8); MONOCYTES % 9.9 % (4.4-11.3); NEUTROPHILS # (AUTO) 3.5 (2.1-6.9); NEUTROPHILS % 44.7 % (38.7-80.0); PLATELET COUNT 286 x10e3/uL (140-360); RED BLOOD COUNT 4.25 x10e6/uL (3.6-5.1); RED CELL DISTRIBUTION WIDTH 13.3 % (11.7-14.4)
[2018-01-24 07:34] LABS: AMYLASE 76 U/L (25-125); ANION GAP 12.2 mmol/L (8-16); BLOOD UREA NITROGEN 6 mg/dL (7-26); BUN/CREATININE RATIO 9 (6-25); CALCIUM 9.2 mg/dL (8.4-10.2); CARBON DIOXIDE 26 mmol/L (22-29); CHLORIDE 108 mmol/L (98-107); CREATININE, SERUM 0.67 mg/dL (0.57-1.11); EST GLOMERULAR FILTRATION RATE > 60 ML/MIN (60-); GLUCOSE 100 mg/dL (74-118); LIPASE 101 U/L (8-78); POTASSIUM 4.2 mmol/L (3.5-5.1); SODIUM 142 mmol/L (136-145)
[2018-01-24 08:00] VITALS: BP 117/56
[2018-01-24] MEDS: PANTOPRAZOLE 40 MG 10ML VIAL IV SCH (09:30)
[2018-01-24 11:54] VITALS: BP 130/71
[2018-01-24] MEDS: SODIUM CHLORIDE 0.9% 1000ML 1,000 ML IV SCH (12:07)
[2018-01-24 13:41] VITALS: BP 130/71
--- NOTE | 2018-01-24 16:39 | Discharge Summary ---
FINAL DISCHARGE DIAGNOSES 1. Acute pancreatitis. 2. Urinary tract infection. 3. Dehydration. 4. Morbid obesity. 5. Hyperglycemia. 6. Chronic smoker. CONSULTANTS: GI. VITAL SIGNS: Temperature is 97.5, pulse 71, respiratory rate 19, blood pressure 130/71, pulse ox 95% on room air. LAB FINDINGS: Show white count of 7.8, hemoglobin 12, hematocrit 37.8, platelets of 286,000. Chemistry: Sodium 142, potassium 4.2, chloride 108, bicarb is 26, anion gap of 12, creatinine is 0.67. Glucose is 100. Calcium is 9.2. Lipase level of admission was 1897, down trended to 101, then 99 which is within normal range. Amylase is 76. Urinalysis consistent with UTI. Troponins were negative. LFTs were normal. Total bilirubin was 0.4. KENA is pending. MICROBIOLOGY: Blood cultures were negative. Urine cultures showed contaminate, showed polymicrobial CT of the abdomen and pelvis with IV contrast showed the appearance of pancreas to be consistent with acute pancreatitis. No pseudocyst. Chest x-ray was found to be negative. HOSPITAL COURSE: This is a 73-year-old female who came in with complaints of abdominal pain in the epigastric region that was found to be an acute pancreatitis. Patient has had multiple acute pancreatitis ____ over the last several weeks. GI was consulted. Several serologies have been ordered and are still currently pending. Patient was tolerating diet well prior to discharge home. She has been cleared by GI for discharge. On discharge, the patient is to follow up with her primary care physician in one week and GI specialist in two weeks for further management and care. On the day of discharge vital signs stable. Labs were reviewed and were stable. The patient was seen and evaluated and examined thoroughly on the day of discharge with no other complaints. Patient verbalized an understanding and agrees to the plan of care to follow up accordingly as an outpatient with the primary care physician in 1 week and GI specialist in 2 weeks' time. DISCHARGE MEDICATIONS: See med reconciliation form. CONDITION ON DISCHARGE: Stable. DIET: Heart Healthy. In the event of any worsening symptoms, the patient was advised to come back to the Emergency Department for further evaluation. This discharge summary took greater than 35 minutes. PATRICA DURHAM MD Job#: [id number] [facility]
[2018-01-24] MEDS ORDERED: PANTOPRAZOLE SO40 MG PO (17:43)
[2018-01-24] MEDS ORDERED: BENTYL10 MG/1 ML PO (17:44)
== END 2018-01-24 17:56 | disposition home or self-care (01) | DRG 439 ==
LOC: ER 23:20 → ERHOLD 01-20 02:38 → MED/SURG3 01-20 18:29
PROVIDERS: ADMIT Internal Medicine; ATTEND Internal Medicine
DX: K85.90 Acute pancreatitis without necrosis or infection, unspecified (principal); N39.0 Urinary tract infection, site not specified; E87.2 Acidosis; Z68.41 Body mass index [BMI] 40.0-44.9, adult; E86.0 Dehydration; E66.01 Morbid (severe) obesity due to excess calories; R73.9 Hyperglycemia, unspecified; F17.210 Nicotine dependence, cigarettes, uncomplicated
CPT/HCPCS: 36415; 71045; 74177; 80048; 80053; 80061; 81001; 82150; 82550; 82553; 83036; 83605; 83690; 83735; 83970; 84478; 84484; 85025; 85610; 85730; 86039; 86301; 87040; 87086; 93005; 96361; 96374; 96375; 99284; J0696; J2405; J7030; Q9967

== ENCOUNTER 2021-02-28 19:40 | Inpatient (IN) | payer MEDICARE ==
[~2021-02-28] VITALS: Ht 154.9 cm; Wt 97.5 kg
[~2021-02-28 19:40] MED LIST: BENTYL10 MG/1 ML PO; PANTOPRAZOLE SO40 MG PO
[2021-02-28] MEDS ORDERED: ONDANSETRON HCL INJ 2MG/ML 2ML 2 MG/ML VIAL IV STA (20:09)
[2021-02-28] MEDS ORDERED: SODIUM CHLORIDE 0.9% 1000ML 1,000 ML IV ONE ×2 (20:15→21:45)
[2021-02-28] MEDS ORDERED: Morphine 4mg Syringe 4 MG/ML INJ IV ONE (20:15)
[2021-02-28 20:26] LABS: BASOPHILS % 0.2 % (0.0-1.0); EOSINOPHILS % 0.3 % (0.0-6.0); HEMATOCRIT 43.2 % (34.2-44.1); HEMOGLOBIN 13.7 g/dL (12.0-16.0); LYMPHOCYTES # (AUTO) 1.2 (1.0-3.2); MEAN CORPUSCULAR HEMOGLOBIN 27.8 pg (28-32); MEAN CORPUSCULAR HGB CONC 31.7 g/dL (31-35); MEAN CORPUSCULAR VOLUME 87.8 fL (81-99); MONOCYTES # (AUTO) 0.7 (0.2-0.8); MONOCYTES % 4.8 % (4.4-11.3); NEUTROPHILS # (AUTO) 12.9 (2.1-6.9); NEUTROPHILS % 86.2 % (38.7-80.0); PLATELET COUNT 225 x10e3/uL (140-360); RED BLOOD COUNT 4.92 x10e6/uL (3.6-5.1); RED CELL DISTRIBUTION WIDTH 13.3 % (11.7-14.4)
[2021-02-28] MEDS ORDERED: PROMETHAZINE 12.5MG/ NACL 0.9% 12.5 MG/50 ML BAG IV PRN (21:00)
[2021-02-28] MEDS ORDERED: PROMETHAZINE 12.5MG/ NACL 0.9% 50 ML ONE (21:04)
[2021-02-28] MEDS ORDERED: SODIUM CHLORIDE 0.9% 1000ML 1,000 ML ONE (21:05)
[2021-02-28 21:18] LABS: AMYLASE 1458 U/L (25-125)
[2021-02-28 21:20] LABS: ALBUMIN 3.7 g/dL (3.5-5.0); ALBUMIN/GLOBULIN RATIO 1.2 (0.8-2.0); ANION GAP 16.8 mmol/L (8-16); CREATININE, SERUM 0.77 mg/dL (0.57-1.11); POTASSIUM 3.8 mmol/L (3.5-5.1)
[2021-02-28 21:27] LABS: CREATINE KINASE MB 1.2 ng/mL (0-5.0)
[2021-02-28 21:35] LABS: LIPASE 2842 U/L (8-78)
[2021-02-28] MEDS ORDERED: IOPAMIDOL 370 MG/ML 200 ML INFUS..BTL INJ ONE (21:40)
[2021-02-28] MEDS ORDERED: SODIUM CHLORIDE 0.9% 50ML 50 ML ONE (21:40)
[2021-02-28 23:04] LABS: CHOL/HDL RATIO 3.7 (3.0-3.6)
[2021-02-28 23:13] LABS: CLARITY,URINE CLEAR (CLEAR); COLOR,URINE YELLOW (YELLOW); KETONES,URINE 1+ (NEGATIVE); LEUKOCYTE ESTERASE ,URINE NEGATIVE (NEGATIVE); NITRITE,URINE NEGATIVE (NEGATIVE); PROTEIN,URINE DIPSTICK NEGATIVE (NEGATIVE); URINE UROBILINOGEN 0.2 mg/dL (0.2 - 1)
[2021-02-28 23:21] LABS: BACTERIA,URINE FEW /HPF; EPITHELIAL CELLS,URINE FEW /LPF; RBC,URINE 0-5 /HPF (0-5); WBC,URINE (MAN) 0-5 /HPF (0-5)
[2021-03-01] VITALS (9 sets, daily range): BP systolic 128–165; BP diastolic 63–80
[2021-03-01] MEDS: ONDANSETRON HCL INJ 2MG/ML 2ML 2 MG/ML VIAL IV PRN ×2 (00:35→05:55)
[2021-03-01] MEDS: HYDROMORPHONE 1MG/1ML INJ IV PRN ×4 (00:35→16:15)
[2021-03-01] MEDS: SODIUM CHLORIDE 0.9% 1000ML 1,000 ML IV SCH ×5 (00:45→23:50)
[2021-03-01] MEDS ORDERED: DICYCLOMINE HCL20 MG PO (01:07)
[2021-03-01] MEDS ORDERED: CALCIUM600 MG PO (01:09)
[2021-03-01] MEDS ORDERED: PANTOPRAZOLE SO40 MG PO (01:09)
[2021-03-01] MEDS ORDERED: COLESTIPOL HCL1 GM PO (01:09)
[2021-03-01 07:02] LABS: BASOPHILS % 0.1 % (0.0-1.0); HEMATOCRIT 42.7 % (34.2-44.1); HEMOGLOBIN 13.5 g/dL (12.0-16.0); LYMPHOCYTES # (AUTO) 0.9 (1.0-3.2); MEAN CORPUSCULAR HEMOGLOBIN 27.6 pg (28-32); MEAN CORPUSCULAR HGB CONC 31.6 g/dL (31-35); MEAN CORPUSCULAR VOLUME 87.1 fL (81-99); MONOCYTES % 6.4 % (4.4-11.3); NEUTROPHILS # (AUTO) 13.6 (2.1-6.9); NEUTROPHILS % 86.9 % (38.7-80.0); PLATELET COUNT 336 x10e3/uL (140-360); RED CELL DISTRIBUTION WIDTH 13.5 % (11.7-14.4)
[2021-03-01 07:34] LABS: ALBUMIN 3.5 g/dL (3.5-5.0); ALBUMIN/GLOBULIN RATIO 1.2 (0.8-2.0); ANION GAP 12.6 mmol/L (8-16); CALCIUM 8.4 mg/dL (8.4-10.2); CREATININE, SERUM 0.67 mg/dL (0.57-1.11); POTASSIUM 3.6 mmol/L (3.5-5.1)
[2021-03-02] VITALS (7 sets, daily range): BP systolic 127–169; BP diastolic 59–81
[2021-03-02] MEDS: HYDROMORPHONE 1MG/1ML INJ IV PRN ×4 (00:33→22:37)
[2021-03-02] MEDS: SODIUM CHLORIDE 0.9% 1000ML 1,000 ML IV SCH ×4 (04:36→22:36)
[2021-03-02 06:02] LABS: BASOPHILS # (AUTO) 0.1 (0.0-0.1); BASOPHILS % 0.2 % (0.0-1.0); EOSINOPHILS % 0.1 % (0.0-6.0); HEMATOCRIT 40.3 % (34.2-44.1); HEMOGLOBIN 12.8 g/dL (12.0-16.0); LYMPHOCYTES # (AUTO) 1.5 (1.0-3.2); LYMPHOCYTES % 7.3 % (18.0-39.1); MEAN CORPUSCULAR HEMOGLOBIN 27.9 pg (28-32); MEAN CORPUSCULAR HGB CONC 31.8 g/dL (31-35); MEAN CORPUSCULAR VOLUME 87.8 fL (81-99); MONOCYTES % 9.7 % (4.4-11.3); NEUTROPHILS # (AUTO) 16.6 (2.1-6.9); NEUTROPHILS % 81.2 % (38.7-80.0); PLATELET COUNT 312 x10e3/uL (140-360); RED BLOOD COUNT 4.59 x10e6/uL (3.6-5.1); RED CELL DISTRIBUTION WIDTH 13.7 % (11.7-14.4)
[2021-03-02 06:30] LABS: ALBUMIN 2.8 g/dL (3.5-5.0); ANION GAP 12.2 mmol/L (8-16); CALCIUM 7.9 mg/dL (8.4-10.2); CREATININE, SERUM 0.58 mg/dL (0.57-1.11); POTASSIUM 3.2 mmol/L (3.5-5.1)
[2021-03-02] MEDS ORDERED: ACETAMINOPHEN 325 MG TAB PO PRN (08:30)
[2021-03-02] MEDS ORDERED: KCL 20 MEQ PACKET/ ORAL SOLN PO ONE (08:30)
[2021-03-02] MEDS ORDERED: GADOBENATE DIMEGLUMINE 1 ML IV ONE (08:51)
[2021-03-02] MEDS ORDERED: SODIUM CHLORIDE 0.9% 50ML 50 ML ONE (08:51)
[2021-03-02] MEDS: ONDANSETRON HCL INJ 2MG/ML 2ML 2 MG/ML VIAL IV PRN ×2 (09:52→16:07)
[2021-03-02] MEDS ORDERED: POTASSIUM CHLORIDE 10MEQ/100ML 400 ML IV ONE (11:15)
[2021-03-03] VITALS (8 sets, daily range): BP systolic 106–136; BP diastolic 54–72
[2021-03-03] MEDS: SODIUM CHLORIDE 0.9% 1000ML 1,000 ML IV SCH ×4 (04:11→19:56)
[2021-03-03] MEDS: HYDROMORPHONE 1MG/1ML INJ IV PRN ×3 (04:59→21:04)
[2021-03-03 06:14] LABS: ANION GAP 13.7 mmol/L (8-16); CALCIUM 8.2 mg/dL (8.4-10.2); CREATININE, SERUM 0.6 mg/dL (0.57-1.11); MAGNESIUM 1.7 MG/DL (1.3-2.1)
[2021-03-03 06:20] LABS: POTASSIUM 4.7 mmol/L (3.5-5.1)
[2021-03-03 06:51] LABS: BASOPHILS # (AUTO) 0.1 (0.0-0.1); BASOPHILS % 0.3 % (0.0-1.0); EOSINOPHILS # (AUTO) 0.1 (0.0-0.4); EOSINOPHILS % 0.6 % (0.0-6.0); HEMATOCRIT 37.5 % (34.2-44.1); HEMOGLOBIN 11.4 g/dL (12.0-16.0); LYMPHOCYTES # (AUTO) 1.7 (1.0-3.2); LYMPHOCYTES % 8.2 % (18.0-39.1); MEAN CORPUSCULAR HEMOGLOBIN 27.8 pg (28-32); MEAN CORPUSCULAR HGB CONC 30.4 g/dL (31-35); MEAN CORPUSCULAR VOLUME 91.5 fL (81-99); MONOCYTES # (AUTO) 2.3 (0.2-0.8); NEUTROPHILS # (AUTO) 16.4 (2.1-6.9); NEUTROPHILS % 79.3 % (38.7-80.0); PLATELET COUNT 266 x10e3/uL (140-360); RED CELL DISTRIBUTION WIDTH 13.8 % (11.7-14.4)
[2021-03-03 08:21] LABS: EOSINOPHILS % (MANUAL) 1 % (0-7); LYMPHOCYTES % (MANUAL) 8 % (19-48); MONOCYTES % (MANUAL) 5 % (3.4-9.0); NEUTROPHILS % (MANUAL) 86 % (40-74); PLATELET ESTIMATE ADEQUATE; PLATELET MORPHOLOGY COMMENT NORMAL
[2021-03-03 08:22] LABS: RBC MORPHOLOGY COMMENT NORMAL
[2021-03-03] MEDS ORDERED: MAGNESIUM OXIDE 400 MG TAB PO ONE (12:45)
[2021-03-03] MEDS: PIPERACILLIN/TAZOBACTAM 3.375 GM in SODIUM CHLORIDE 0.9% 50ML 50 ML IV SCH ×3 (13:00→23:59)
[2021-03-04] VITALS (8 sets, daily range): BP systolic 93–132; BP diastolic 60–83
[2021-03-04] MEDS ORDERED: SODIUM CHLORIDE 0.9% 50ML 50 ML ONE (02:16)
[2021-03-04] MEDS: HYDROMORPHONE 1MG/1ML INJ IV PRN ×2 (03:52→20:13)
[2021-03-04] MEDS: PIPERACILLIN/TAZOBACTAM 3.375 GM in SODIUM CHLORIDE 0.9% 50ML 50 ML IV SCH ×4 (05:58→23:53)
[2021-03-04 06:18] LABS: BASOPHILS # (AUTO) 0.1 (0.0-0.1); BASOPHILS % 0.5 % (0.0-1.0); EOSINOPHILS # (AUTO) 0.3 (0.0-0.4); EOSINOPHILS % 2.2 % (0.0-6.0); HEMATOCRIT 36.6 % (34.2-44.1); HEMOGLOBIN 11.1 g/dL (12.0-16.0); LYMPHOCYTES # (AUTO) 1.6 (1.0-3.2); LYMPHOCYTES % 10.2 % (18.0-39.1); MEAN CORPUSCULAR HEMOGLOBIN 27.7 pg (28-32); MEAN CORPUSCULAR HGB CONC 30.3 g/dL (31-35); MEAN CORPUSCULAR VOLUME 91.3 fL (81-99); MONOCYTES # (AUTO) 1.5 (0.2-0.8); MONOCYTES % 9.8 % (4.4-11.3); NEUTROPHILS # (AUTO) 11.7 (2.1-6.9); NEUTROPHILS % 76.8 % (38.7-80.0); PLATELET COUNT 251 x10e3/uL (140-360); RED BLOOD COUNT 4.01 x10e6/uL (3.6-5.1); RED CELL DISTRIBUTION WIDTH 13.6 % (11.7-14.4)
[2021-03-04 06:42] LABS: ALBUMIN 2.5 g/dL (3.5-5.0); ALBUMIN/GLOBULIN RATIO 0.8 (0.8-2.0); ANION GAP 11.7 mmol/L (8-16); CALCIUM 8.8 mg/dL (8.4-10.2); CREATININE, SERUM 0.64 mg/dL (0.57-1.11); POTASSIUM 3.7 mmol/L (3.5-5.1)
[2021-03-05] VITALS: BP 122/78
[2021-03-05 04:00] VITALS: BP 127/78
[2021-03-05] MEDS: HYDROMORPHONE 1MG/1ML INJ IV PRN (05:31)
[2021-03-05] MEDS: PIPERACILLIN/TAZOBACTAM 3.375 GM in SODIUM CHLORIDE 0.9% 50ML 50 ML IV SCH (06:05)
[2021-03-05 06:31] LABS: BASOPHILS # (AUTO) 0.1 (0.0-0.1); BASOPHILS % 0.4 % (0.0-1.0); EOSINOPHILS # (AUTO) 0.5 (0.0-0.4); EOSINOPHILS % 3.8 % (0.0-6.0); HEMATOCRIT 35.4 % (34.2-44.1); HEMOGLOBIN 10.6 g/dL (12.0-16.0); LYMPHOCYTES # (AUTO) 1.7 (1.0-3.2); LYMPHOCYTES % 13.4 % (18.0-39.1); MEAN CORPUSCULAR HEMOGLOBIN 27.4 pg (28-32); MEAN CORPUSCULAR HGB CONC 29.9 g/dL (31-35); MEAN CORPUSCULAR VOLUME 91.5 fL (81-99); MONOCYTES # (AUTO) 1.4 (0.2-0.8); MONOCYTES % 11.5 % (4.4-11.3); NEUTROPHILS # (AUTO) 8.8 (2.1-6.9); NEUTROPHILS % 70.3 % (38.7-80.0); PLATELET COUNT 255 x10e3/uL (140-360); RED BLOOD COUNT 3.87 x10e6/uL (3.6-5.1); RED CELL DISTRIBUTION WIDTH 13.6 % (11.7-14.4)
[2021-03-05 06:57] LABS: ALBUMIN 2.3 g/dL (3.5-5.0); ALBUMIN/GLOBULIN RATIO 0.6 (0.8-2.0); ANION GAP 13.4 mmol/L (8-16); CALCIUM 9.2 mg/dL (8.4-10.2); CREATININE, SERUM 0.63 mg/dL (0.57-1.11); POTASSIUM 3.4 mmol/L (3.5-5.1)
[2021-03-05] MEDS ORDERED: POTASSIUM CHLORIDE 20 MEQ TAB CR PO STA (08:19)
[2021-03-05 09:00] VITALS: BP 127/78
[2021-03-05] MEDS ORDERED: AUGMENTIN 875-1 EACH PO (09:48)
[2021-03-05] MEDS ORDERED: MAGNESIUM OXIDE 400 MG TAB PO NR (10:00)
[2021-03-05] MEDS ORDERED: HYDROCODON-ACE1 EA11 PO (10:46)
== END 2021-03-05 10:48 | disposition home or self-care (01) | DRG 439 ==
LOC: ER 19:51 → ERHOLD 22:45 → MED/SURG2 03-01 00:09
PROVIDERS: ADMIT Internal Medicine; ATTEND Internal Medicine
DX: K85.90 Acute pancreatitis without necrosis or infection, unspecified (principal); Z68.41 Body mass index [BMI] 40.0-44.9, adult; K21.9 Gastro-esophageal reflux disease without esophagitis; E66.01 Morbid (severe) obesity due to excess calories; E78.5 Hyperlipidemia, unspecified; Z87.891 Personal history of nicotine dependence; K86.89 Other specified diseases of pancreas; Z90.49 Acquired absence of other specified parts of digestive tract; Z88.8 Allergy status to other drugs, medicaments and biological substances
CPT/HCPCS: 36415; 71045; 71046; 74177; 74183; 76705; 80048; 80053; 80061; 81001; 82150; 82550; 82553; 83036; 83605; 83690; 83735; 83970; 84478; 84484; 85025; 86039; 86301; 87040; 93005; 94799; 99251; 99284; J1170; J2270; J2405; J2543; J2550; J3480; J7030; Q9967; U0002